=== PATIENT | male | born 1955 | race American Indian/Alaskan Native ===

== ENCOUNTER 2019-06-14 00:04 | Emergency (ER) | payer MEDICAID ==
--- NOTE | 2019-06-14 00:40 | EDM.PDOC ---
ED HPI GENERAL MEDICAL PROBLEM - General Chief Complaint: General Stated Complaint: back pain, ? seizure activity Time Seen by Provider: 06/14/19 00:10 Source of Information: Reports: Family, Old Records History Limitations: Reports: Altered Mental Status - History of Present Illness INITIAL COMMENTS - FREE TEXT/NARRATIVE: Patient is a 63-year-old gentleman who was brought from his home by daughter states that he had 2 near syncopal episodes at home she states that she got him up and he rolled his eyes backwards and was falling backwards when they held and then that she did again she went ahead and gave him sugar since is a diabetic did not check his blood sugars but his blood sugars now is like 163 he also has history of hypertension diabetes and chronic back pain with lumbar compression fracture he was hospitalized about 2-1/2 weeks ago at [place] and discharged home with daughter waiting for placement in correction. At this time a CT of the head was obtained which I reviewed no acute intracranial bleeding was seen pending radiologist report. We'll go ahead and do a CT of the line lab work Onset: Today Duration: Hour(s):, Other (No acute changes patient and daughter denies any head injury.) Severity: Moderate Improves with: Reports: Rest Worsens with: Reports: Movement Associated Symptoms: Reports: Confusion - Related Data Allergies Allergy/AdvReac Type Severity Reaction Status Date / Time No Known Allergies Allergy Verified 06/14/19 00:20 Home Meds: Home Meds DULoxetine [Cymbalta] 60 mg PO DAILY 02/14/18 [History] Glimepiride [Amaryl] 2 mg PO BIDMEALS 02/14/18 [History] Losartan [Cozaar] 100 mg PO DAILY 02/14/18 [History] atorvaSTATin [Lipitor] 10 mg PO DAILY 02/14/18 [History] metFORMIN HCl [Glucophage] 1,000 mg PO BIDMEALS 02/14/18 [History] Aspirin [Halfprin] 81 mg PO DAILY 04/29/19 [History] Gabapentin [Neurontin] 300 mg PO BID 04/29/19 [History] Magnesium Oxide [Magnesium] 400 mg PO BID 04/29/19 [History] Sodium Chloride 1 gm PO TID 04/29/19 [History] Calcium Carbonate/Vitamin D3 [Oyster Shell 500-Vit D3 200 Tb] 1 tab PO DAILY [History] Cholecalciferol (Vitamin D3) [Vitamin D3] 1,000 unit PO DAILY 06/14/19 [History] Past Medical History HEENT History: Reports: None Cardiovascular History: Reports: High Cholesterol, Hypertension Respiratory History: Reports: None Gastrointestinal History: Reports: Other (See Below) Other Gastrointestinal History: c-diff Genitourinary History: Reports: None Musculoskeletal History: Reports: Osteoarthritis Other Musculoskeletal History: COMPRESSION FRACTURE t12, L1, L5, nerve pain Neurological History: Reports: Other (See Below) Other Neuro History: BILATERAL HAND PAIN, RESTLESS LEGS Psychiatric History: Reports: Addiction, Depression Endocrine/Metabolic History: Reports: Diabetes, Type II Hematologic History: Reports: None Immunologic History: Reports: None Oncologic (Cancer) History: Reports: None Dermatologic History: Reports: None - Infectious Disease History Infectious Disease History: Reports: C-Difficile - Past Surgical History Head Surgeries/Procedures: Reports: None Social & Family History - Family History Family Medical History: Noncontributory - Caffeine Use Caffeine Use: Reports: Coffee ED ROS GENERAL - Review of Systems Review Of Systems: See Below Constitutional: Reports: No Symptoms, Weakness HEENT: Reports: No Symptoms Respiratory: Reports: No Symptoms Cardiovascular: Reports: Lightheadedness, Syncope Endocrine: Reports: No Symptoms GI/Abdominal: Reports: No Symptoms : Reports: No Symptoms Musculoskeletal: Reports: No Symptoms Skin: Reports: Bruising Neurological: Reports: No Symptoms, Confusion, Syncope Psychiatric: Reports: No Symptoms Hematologic/Lymphatic: Reports: No Symptoms Immunologic: Reports: No Symptoms ED EXAM, GENERAL - Physical Exam Exam: See Below Exam Limited By: Altered Mental Status General Appearance: Alert, WD/WN, Mild Distress Ears: Normal External Exam, Normal Canal, Hearing Grossly Normal, Normal TMs Ear Exam: Bilateral Ear: Auricle Normal, Canal Normal, TM normal Nose: Normal Inspection Throat/Mouth: Normal Inspection, Normal Lips, Normal Teeth, Normal Gums, Normal Oropharynx, Normal Voice, No Airway Compromise Head: Atraumatic, Normocephalic Neck: Normal Inspection, Supple, Non-Tender, Full Range of Motion Respiratory/Chest: No Respiratory Distress, Lungs Clear, Prolonged Expiration Cardiovascular: Normal Peripheral Pulses, Regular Rate, Rhythm, No Edema, No Gallop, No JVD, No Murmur, No Rub GI/Abdominal: Normal Bowel Sounds, Soft, Non-Tender, No Organomegaly, No Distention, No Abnormal Bruit, No Mass (Male) Exam: Deferred Rectal (Males) Exam: Deferred, Other (Stool incontinence) Back Exam: Decreased Range of Motion, Other (L2 fracture&) Extremities: Normal Inspection, Normal Range of Motion, Non-Tender, Normal Capillary Refill, No Pedal Edema Neurological: Alert (Answers simple questions), Oriented (Answers simple questions), CN II-XII Intact Psychiatric: Depressed Mood Skin Exam: Warm, Dry, Intact, Normal Color, No Rash Lymphatic: No Adenopathy Course - Vital Signs Last Recorded V/S: Last Vital Signs Temp 97.7 F 06/14/19 00:06 Pulse 89 06/14/19 00:06 Resp 20 06/14/19 00:06 BP 100/58 L 06/14/19 00:06 Pulse Ox 98 06/14/19 00:06 - Orders/Labs/Meds Orders: Active Orders 24 hr Category Date Time Status Cardiac Monitoring [RC] . DIRECTED Care 06/14/19 00:18 Ordered EKG Documentation Completion [RC] ASDIRECTED Care 06/14/19 00:19 Ordered Head wo Cont [CT] Stat Exams 06/14/19 00:18 Ordered Lumbar Spine wo Cont [CT] Stat Exams 06/14/19 00:31 Ordered Sodium Chloride 0.9% [Normal Saline] 1,000 ml Med 06/14/19 01:15 Ordered IV ASDIRECTED Sodium Chloride 0.9% [Saline Flush] Med 06/14/19 01:16 Ordered 10 ml FLUSH ASDIRECTED PRN Saline Lock Insert [OM.PC] Stat Oth 06/14/19 01:16 Ordered Medication Orders Sodium Chloride (Normal Saline) 1,000 mls @ 250 mls/hr IV ASDIRECTED JANET Last Admin: 06/14/19 01:20 Dose: 250 mls/hr Sodium Chloride (Saline Flush) 10 ml FLUSH ASDIRECTED PRN PRN Reason: Keep Vein Open Last Admin: 06/14/19 01:21 Dose: 10 ml Labs: Laboratory Tests 06/14/19 06/14/19 06/14/19 Range/Units 00:30 00:30 00:30 WBC 8.1 (4.0-10.2) K/uL RBC 3.59 L (4.33-5.41) M/uL Hgb 11.3 L (13.1-16.8) g/dL Hct 35.1 L (39.0-49.0) % MCV 97.8 (84.0-98.0) fL MCH 31.5 (28.2-33.3) pg MCHC 32.2 (31.7-36.0) g/dL RDW 13.8 (11.2-14.1) % Plt Count 349 (150-350) K/uL Neut % (Auto) 60.1 (45.0-80.0) % Lymph % (Auto) 27.6 (10.0-50.0) % Nobles % (Auto) 10.7 (2.0-14.0) % Eos % (Auto) 1.4 (0.0-5.0) % Baso % (Auto) 0.2 (0.0-2.0) % Neut # (Auto) 4.88 (1.40-7.00) K/uL Lymph # (Auto) 2.24 (0.50-3.50) K/uL Nobles # (Auto) 0.87 (0.00-1.00) K/uL Eos # (Auto) 0.11 (0.00-0.50) K/uL Baso # (Auto) 0.02 (0.00-0.20) K/uL D-Dimer, Quantitative 778 H (0-400) ng/mL Sodium 139 (136-145) mmol/L Potassium 4.7 (3.5-5.1) mmol/L Chloride 103 (98-107) mmol/L Carbon Dioxide 24.2 (21.0-32.0) mmol/L BUN 34 H (7-18) mg/dL Creatinine 3.82 H* (0.51-1.17) mg/dL Est Cr Clr Drug Dosing 19.15 mL/min Estimated GFR (MDRD) 16 mL/min Glucose 173 H (74-106) mg/dL Calcium 9.4 (8.5-10.1) mg/dL Total Bilirubin 0.5 (0.2-1.0) mg/dL AST 11 L (15-37) U/L ALT 22 (12-78) U/L Alkaline Phosphatase 130 H (46-116) IU/L Total Protein 7.3 (6.4-8.2) g/dL Albumin 3.4 (3.4-5.0) g/dL Ethyl Alcohol (0.000-0.080) g/dL 06/14/19 Range/Units 00:30 WBC (4.0-10.2) K/uL RBC (4.33-5.41) M/uL Hgb (13.1-16.8) g/dL Hct (39.0-49.0) % MCV (84.0-98.0) fL MCH (28.2-33.3) pg MCHC (31.7-36.0) g/dL RDW (11.2-14.1) % Plt Count (150-350) K/uL Neut % (Auto) (45.0-80.0) % Lymph % (Auto) (10.0-50.0) % Nobles % (Auto) (2.0-14.0) % Eos % (Auto) (0.0-5.0) % Baso % (Auto) (0.0-2.0) % Neut # (Auto) (1.40-7.00) K/uL Lymph # (Auto) (0.50-3.50) K/uL Nobles # (Auto) (0.00-1.00) K/uL Eos # (Auto) (0.00-0.50) K/uL Baso # (Auto) (0.00-0.20) K/uL D-Dimer, Quantitative (0-400) ng/mL Sodium (136-145) mmol/L Potassium (3.5-5.1) mmol/L Chloride (98-107) mmol/L Carbon Dioxide (21.0-32.0) mmol/L BUN (7-18) mg/dL Creatinine (0.51-1.17) mg/dL Est Cr Clr Drug Dosing mL/min Estimated GFR (MDRD) mL/min Glucose (74-106) mg/dL Calcium (8.5-10.1) mg/dL Total Bilirubin (0.2-1.0) mg/dL AST (15-37) U/L ALT (12-78) U/L Alkaline Phosphatase (46-116) IU/L Total Protein (6.4-8.2) g/dL Albumin (3.4-5.0) g/dL Ethyl Alcohol 0.000 (0.000-0.080) g/dL Meds: Medications Generic Name Dose Route Start Last Admin Trade Name Freq PRN Reason Stop Dose Admin Sodium Chloride 1,000 mls @ 250 mls/hr 06/14/19 01:15 06/14/19 01:20 Normal Saline IV 250 mls/hr ASDIRECTED JANET Administration Sodium Chloride 10 ml 06/14/19 01:16 06/14/19 01:21 Saline Flush FLUSH 10 ml ASDIRECTED PRN Administration Keep Vein Open Departure - Departure Time of Disposition: 01:37 Disposition: DC/Tfer to [facility] 02 Clinical Impression: Acute renal failure Qualifiers: Acute renal failure type: unspecified Qualified Code(s): N17.9 - Acute kidney failure, unspecified Diabetes Qualifiers: Diabetes mellitus type: type 2 Diabetes mellitus medical affairs director insulin use: without alf use Diabetes mellitus complication status: with kidney complications Diabetes mellitus complication detail: with chronic kidney disease Chronic kidney disease stage: unspecified stage Qualified Code(s): E11.22 - Type 2 diabetes mellitus with diabetic chronic kidney disease Hypertension Qualifiers: Hypertension type: unspecified Qualified Code(s): I10 - Essential (primary) hypertension Compression fx, lumbar spine Qualifiers: Encounter type: initial encounter Lumbar vertebra fracture level: unspecified lumbar vertebra Qualified Code(s): S32.000A - Wedge compression fracture of unspecified lumbar vertebra, initial encounter for closed fracture - Discharge Information *PRESCRIPTION DRUG MONITORING PROGRAM REVIEWED*: No *COPY OF PRESCRIPTION DRUG MONITORING REPORT IN PATIENT AMY: No Forms: ED Department Discharge - My Orders Last 24 Hours: My Active Orders 06/14/19 00:18 Cardiac Monitoring [RC] . DIRECTED Head wo Cont [CT] Stat 06/14/19 00:19 EKG Documentation Completion [RC] ASDIRECTED 06/14/19 00:31 Lumbar Spine wo Cont [CT] Stat 06/14/19 01:15 Sodium Chloride 0.9% [Normal Saline] 1,000 ml IV ASDIRECTED 06/14/19 01:16 Sodium Chloride 0.9% [Saline Flush] 10 ml FLUSH ASDIRECTED PRN Saline Lock Insert [OM.PC] Stat - Assessment/Plan Last 24 Hours: My Active Orders 06/14/19 00:18 Cardiac Monitoring [RC] . DIRECTED Head wo Cont [CT] Stat 06/14/19 00:19 EKG Documentation Completion [RC] ASDIRECTED 06/14/19 00:31 Lumbar Spine wo Cont [CT] Stat 06/14/19 01:15 Sodium Chloride 0.9% [Normal Saline] 1,000 ml IV ASDIRECTED 06/14/19 01:16 Sodium Chloride 0.9% [Saline Flush] 10 ml FLUSH ASDIRECTED PRN Saline Lock Insert [OM.PC] Stat
[2019-06-14] MEDS ORDERED: Sodium Chloride 0.9% 1,000 ML IV SCH (01:15)
[2019-06-14] MEDS ORDERED: Sodium Chloride 0.9% 10 ML Syringe FLUSH PRN (01:16)
== END 2019-06-14 02:25 ==
LOC: LL.ED 00:04
DX: S32.000A Wedge compression fracture of unspecified lumbar vertebra, initial encounter for closed fracture (principal); N17.9 Acute kidney failure, unspecified; E11.22 Type 2 diabetes mellitus with diabetic chronic kidney disease; I12.9 Hypertensive chronic kidney disease with stage 1 through stage 4 chronic kidney disease, or unspecified chronic kidney disease; N18.9 Chronic kidney disease, unspecified; E78.00 Pure hypercholesterolemia, unspecified; F32.9 Major depressive disorder, single episode, unspecified; Z79.899 Other long term (current) drug therapy; Z79.84 Long term (current) use of oral hypoglycemic drugs; Z79.82 Long term (current) use of aspirin; W19.XXXA Unspecified fall, initial encounter; Y92.009 Unspecified place in unspecified non-institutional (private) residence as the place of occurrence of the external cause
CPT/HCPCS: 36415; 70450; 72131; 80053; 85025; 85379; 93005; 96360; 99285-25; G0480; J7030